=== PATIENT | female | born 1955 | race Caucasian/White ===

== ENCOUNTER 2016-06-17 06:56 | Day surgery (SDC) | payer BC ==
[~2016-06-17] VITALS: Ht 177.8 cm; Wt 71.7 kg
[2016-06-17 07:34] VITALS: BP 123/81; PULSE 82; TEMP 98
[2016-06-17] MEDS ORDERED: XALATAN EYE DROPS OU (07:39)
[2016-06-17] MEDS ORDERED: NASACORT OTC NS (07:40)
[2016-06-17] MEDS ORDERED: GLUCOSAMIN 500 PO (07:40)
[2016-06-17] MEDS ORDERED: CALCIUM 600MG+D1 TAB PO (07:40)
[2016-06-17] MEDS ORDERED: MAG-OX 400400 MG/TAB PO (07:41)
[2016-06-17] MEDS ORDERED: VITAMIN B COMPL1 SGL PO (07:41)
[2016-06-17] MEDS ORDERED: VITAMIN C500 MG PO (07:42)
[2016-06-17] MEDS ORDERED: XANAX .25M0.25 MG/TA PO (07:42)
[2016-06-17] MEDS ORDERED: NATURAL E400 IU PO (07:42)
[2016-06-17 09:30] VITALS: BP 105/63; PULSE 66; TEMP 97.5
[2016-06-17 09:45] VITALS: BP 101/64; PULSE 57
[2016-06-17 10:00] VITALS: BP 102/62; PULSE 55
[2016-06-17 10:15] VITALS: BP 114/55; PULSE 53
[2016-06-17 14:38] VITALS: BP 95/64; PULSE 66
== END 2016-06-17 10:30 | disposition home or self-care (01) ==
LOC: SDCO 06:56
DX: Z12.11 Encounter for screening for malignant neoplasm of colon (principal); I10 Essential (primary) hypertension; F41.9 Anxiety disorder, unspecified
CPT/HCPCS: OP; J2250; J3010; J7030

== ENCOUNTER → 2016-07-20 | Outpatient (CLI) | payer BC ==
[~2016-07-20] MED LIST: CALCIUM 600MG+D1 TAB PO; GLUCOSAMIN 500 PO; MAG-OX 400400 MG/TAB PO; NASACORT OTC NS; NATURAL E400 IU PO; VITAMIN B COMPL1 SGL PO; VITAMIN C500 MG PO; XALATAN EYE DROPS OU; XANAX .25M0.25 MG/TA PO
== END ==
LOC: MC.RAD 09:36
DX: C50.311 Malignant neoplasm of lower-inner quadrant of right female breast (principal)

== ENCOUNTER → 2017-07-24 | Outpatient (CLI) | payer BC | LOC: MC.RAD 07-20 09:40 | DX: Z12.31 Encounter for screening mammogram for malignant neoplasm of breast (principal); C50.311 Malignant neoplasm of lower-inner quadrant of right female breast ==

== ENCOUNTER → 2018-07-26 | Outpatient (CLI) | payer BC | LOC: MC.RAD 08:29 | DX: Z12.31 Encounter for screening mammogram for malignant neoplasm of breast (principal); C50.311 Malignant neoplasm of lower-inner quadrant of right female breast; Z98.890 Other specified postprocedural states; Z98.82 Breast implant status ==

== ENCOUNTER → 2019-07-29 | Outpatient (CLI) | payer BC | LOC: MC.RAD 10:00 | DX: Z12.31 Encounter for screening mammogram for malignant neoplasm of breast (principal); C50.311 Malignant neoplasm of lower-inner quadrant of right female breast ==

== ENCOUNTER → 2020-07-29 | Outpatient (CLI) | payer MEDICARE, BC | LOC: MC.RAD 09:30 | DX: Z12.31 Encounter for screening mammogram for malignant neoplasm of breast (principal); Z90.11 Acquired absence of right breast and nipple; C50.311 Malignant neoplasm of lower-inner quadrant of right female breast; Z98.82 Breast implant status; Z98.890 Other specified postprocedural states ==

== ENCOUNTER → 2021-07-30 | Outpatient (CLI) | payer MEDICARE, BC | LOC: MC.RAD 09:34 | DX: Z12.31 Encounter for screening mammogram for malignant neoplasm of breast (principal) ==